=== PATIENT | female | born 1980 | race African-American/Black ===

== ENCOUNTER 2017-06-02 18:17 | Emergency (ER) | payer MEDICAID | END 2017-06-02 19:45 | disposition home or self-care (01) | LOC: D.ER 18:17 | DX: J01.90 Acute sinusitis, unspecified (principal) ==

== ENCOUNTER 2017-07-17 12:11 | Emergency (ER) | payer MEDICAID | END 2017-07-17 13:16 | disposition home or self-care (01) | LOC: D.ER 12:11 | DX: J04.0 Acute laryngitis (principal); R07.81 Pleurodynia ==

== ENCOUNTER 2017-09-26 21:55 | Emergency (ER) | payer MEDICAID | END 2017-09-26 23:13 | disposition home or self-care (01) | LOC: D.ER 21:55 | DX: S46.911A Strain of unspecified muscle, fascia and tendon at shoulder and upper arm level, right arm, initial encounter (principal); X58.XXXA Exposure to other specified factors, initial encounter; Y93.89 Activity, other specified; Y92.89 Other specified places as the place of occurrence of the external cause ==